=== PATIENT | male | born 1960 | race Caucasian/White ===

== ENCOUNTER 2017-11-05 14:00 | Emergency (ER) | payer BC ==
[2017-11-05 14:19] VITALS: BP 120/77
--- NOTE | 2017-11-05 14:46 | UC ---
Truncal Trauma HPI - HPI Summary HPI Summary: Pt presents with right rib pain for 1 week. He tells me that 1 week ago he was golfing and leaned over the side of the golf cart on his right ribs - heard/ felt a pop in this area. Had immediate pain and has been painful ever since. He tried to deal with pain and take tylenol, but is having trouble getting comfortable. He had some tylenol #3 at home from a previous surgery and took 2 this morning with moderate relief. Trouble taking a deep breath due to pain. Denies SOB. - History Of Current Complaint Chief Complaint: UCChestPain Stated Complaint: RIB INJURY Time Seen by Provider: 11/05/17 14:31 Hx Obtained From: Patient Onset/Duration: Sudden Onset Severity Initially: Severe Severity Currently: Severe Pain Intensity: 8 Pain Scale Used: 0-10 Numeric Aggravating Factor(s): Movement, Deep Breathing, Cough Alleviating factor(s): Rest - Allergies/Home Medications Allergies/Adverse Reactions: Allergies Allergy/AdvReac Type Severity Reaction Status Date / Time No Known Allergies Allergy Verified 11/05/17 14:19 Home Medications: Home Medications Acetaminop/Codeine 30 MG TAB* [Tylenol/Codeine 30 MG TAB*] 1 tab PO PRN [History] Propranolol TAB* [Inderal TAB*] 20 mg PO DAILY 11/05/17 [History Confirmed 11/05] raNITIdine HCl [Ranitidine HCl] 150 mg PO DAILY 11/05/17 [History Confirmed 08/24] PMH/Surg Hx/FS Hx/Imm Hx - Additional Past Medical History Additional PMH: Gout Allergies GI/ History: Gastroesophageal Reflux - Surgical History Surgical History: Yes Surgery Procedure, Year, and Place: APPY - Family History Known Family History: Positive: Hypertension - Social History Occupation: Employed Full-time Lives: With Family Alcohol Use: None Substance Use Type: None Smoking Status (MU): Never Smoked Tobacco Review of Systems Constitutional: Negative Skin: Negative Respiratory: Negative Cardiovascular: Negative Gastrointestinal: Negative Neurovascular: Negative Musculoskeletal: Other: - Right rib pain Neurological: Negative All Other Systems Reviewed And Are Negative: Yes Physical Exam - Summary Physical Exam Summary: GENERAL: Mild pain distress SKIN: No rashes, sores, erythema, or ecchymosis to the right ribs. NECK: Supple. Nontender. No lymphadenopathy. CHEST: CTAB. No accessory muscle use. Breathing comfortably and in no distress. CV: RRR. Without m/r/g. Pulses intact radial and ulnar. MSK: Severe TTP over right ribs 4-7. B/L UEs Strength 5/5 including welfare officer strength, FROM but with pain in right ribs. NEURO: Alert. Sensations intact hand and all fingers. PSYCH: Age appropriate behavior. Triage Information Reviewed: Yes Vital Signs: Initial Vital Signs Temp 98 F 11/05/17 14:13 Pulse 57 11/05/17 14:13 Resp 15 11/05/17 14:13 BP 120/77 11/05/17 14:13 Pulse Ox 97 11/05/17 14:13 Truncal Trauma Course/Dx - Course Course Of Treatment: XR: IMPRESSION: MINIMALLY DISPLACED FRACTURE OF THE RIGHT EIGHTH RIB WITHOUT APPRECIABLE PNEUMOTHORAX. iSTOP Reference #: [id number]. Advised to practice deep breathing. Will rx for Tramadol and advise supportive care. - Differential Dx/Diagnosis Provider Diagnoses: MINIMALLY DISPLACED FRACTURE OF THE RIGHT EIGHTH RIB Discharge - Sign-Out/Discharge Documenting (check all that apply): Discharge/Admit/Transfer - Discharge Plan Condition: Stable Disposition: HOME Prescriptions: traMADol TAB* [Ultram*] 50 mg PO Q8H PRN #18 tab MDD 3 PRN Reason: Pain Patient Education Materials: Rib Fracture (ED) Referrals: Leigh Browning, [facility] [Primary Care Provider] - Additional Instructions: If you develop a fever, shortness of breath, chest pain, new or worsening symptoms - please call your PCP or go to the ED. - Billing Disposition and Condition Condition: STABLE Disposition: HOME
--- NOTE | 2017-11-05 15:05 | RAD ---
HISTORY: Subacute injury, right-sided pain COMPARISONS: None VIEWS: 7, Frontal view of the chest with frontal and oblique views of the right hemithorax. FINDINGS: There is a minimally displaced fracture of the right eighth rib. There is no appreciable pneumothorax. IMPRESSION: MINIMALLY DISPLACED FRACTURE OF THE RIGHT EIGHTH RIB WITHOUT APPRECIABLE PNEUMOTHORAX.
== END 2017-11-05 15:40 | disposition home or self-care (01) ==
LOC: UCEAST 14:00
DX: S22.31XA Fracture of one rib, right side, initial encounter for closed fracture (principal); X50.1XXA Overexertion from prolonged static or awkward postures, initial encounter; Y93.53 Activity, golf; Y92.39 Other specified sports and athletic area as the place of occurrence of the external cause; K21.9 Gastro-esophageal reflux disease without esophagitis
CPT/HCPCS: 99212; G0463

== ENCOUNTER 2022-03-25 07:50 | Observation (INO) ==
[2022-03-25 08:13] LABS: ABS Eosinophils 0.2 10^3/ul (0-0.6); ABS Monocytes 0.9 10^3/ul (0-0.8); ABS Neutrophils 3.9 10^3/ul (1.5-7.7); Eosinophil % 3.4 %; Hematocrit 38 % (42-52); Hemoglobin 12.8 g/dL (14.0-18.0); Lymphocyte % 16.6 %; Mean Corpuscular HGB Conc 34 g/dL (31-36); Mean Corpuscular Hemoglobin 30 pg (27-31); Mean Corpuscular Volume 90 fL (80-94); Mean Platelet Volume 9.1 fL (7.4-10.4); Platelet Count 184 10^3/uL (150-450); Red Blood Count 4.21 10^6 /uL (4.18-5.48); Red Cell Distribution Width 13 % (10-15)
[2022-03-25 08:24] LABS: INR 0.93 (0.89-1.11)
[2022-03-25 09:00] LABS: Albumin 4.1 g/dL (3.2-5.2); Albumin/Globulin Ratio 1.9 (1-3); Calcium 9.2 mg/dL (8.6-10.3); Globulin 2.2 g/dL (2-4); Potassium 4.1 mmol/L (3.5-5.0); Total Bilirubin 0.7 mg/dL (0.2-1.0); Total Protein 6.3 g/dL (6.4-8.9); eGFR CKD-EPI 96.9 (>60)
[2022-03-25 09:54] LABS: High Sensitivity Troponin 1 Hr 91 pg/mL (<20)
[2022-03-25 10:18] LABS: TSH Ultra Thyroid Stim Horm 2.18 mcIU/mL (0.34-5.60)
[2022-03-25] MEDS ORDERED: Ondansetron 4 mg VIAL 2 MG/ML 2 ml VIAL IV PRN (10:47)
[2022-03-25] MEDS ORDERED: Heparin DRIP 25,000 UNITS BAG 25,000 UNITS/500 ML BAG IV SCH (11:15)
[2022-03-25 11:46] LABS: Activated Partial Thrombo Time 26.3 seconds (26.0-38.0)
[2022-03-25] MEDS ORDERED: Heparin 5000 UNITS/ML 1 mL VIAL IV SCH (12:00)
[2022-03-25] MEDS ORDERED: Perflutren Lipid Microsphere 3 ML VIAL ONE (12:14)
[2022-03-25] MEDS ORDERED: fentaNYL 100 mcg/2 ml 50 MCG/ML VIAL ONE (12:42)
[2022-03-25] MEDS ORDERED: Midazolam 5 mg/5 ml VIAL 1 mg/ml 5 ml VIAL (5 mg) ONE (12:42)
[2022-03-25] MEDS ORDERED: VERAPAMIL 2.5 MG/ML 2 ML VIAL ** 5 mg/2 ml ONE ×2 (12:42→13:10)
[2022-03-25] MEDS ORDERED: Heparin 1,000 UNIT/ML 10 ml (10,000 UNITS) CATHLAB/DIALYSIS ONE ×2 (12:43→13:31)
[2022-03-25] MEDS ORDERED: nitroGLYCERIN DRIP 25,000 MCG/250 ML BTL ONE (12:43)
[2022-03-25] MEDS ORDERED: Lidocaine 1% MPF 5 ML VIAL ONE (12:43)
[2022-03-25] MEDS ORDERED: Iohexol 350 (CONTRAST) 100 ML PAK IV ONE (12:43)
[2022-03-25] MEDS ORDERED: Heparin 2 UNITS/ML 1000 mls 2,000 ML IV ONE (12:43)
[2022-03-25] MEDS ORDERED: niCARdipine 0.1MG/ML IVPREMIX 20 MG/200 ML BAG IV ONE (13:45)
[2022-03-25] MEDS: NS 0.9% 1000 ml BAG 1,000 ML IV SCH ×2 (14:34→17:27)
[2022-03-25] MEDS ORDERED: Nitroglycerin 0.6 mg TAB SL PRN (18:21)
[2022-03-26 05:37] LABS: ABS Eosinophils 0.2 10^3/ul (0-0.6); ABS Lymphocytes 1.2 10^3/ul (1.0-4.8); ABS Monocytes 0.9 10^3/ul (0-0.8); ABS Neutrophils 3.4 10^3/ul (1.5-7.7); Eosinophil % 3.8 %; Hematocrit 37 % (42-52); Hemoglobin 12.3 g/dL (14.0-18.0); Lymphocyte % 20.3 %; Mean Corpuscular HGB Conc 33 g/dL (31-36); Mean Corpuscular Hemoglobin 30 pg (27-31); Mean Corpuscular Volume 91 fL (80-94); Mean Platelet Volume 9.1 fL (7.4-10.4); Nucleated Red Blood Cells % 0.1; Platelet Count 153 10^3/uL (150-450); Red Blood Count 4.06 10^6 /uL (4.18-5.48); Red Cell Distribution Width 13 % (10-15); White Blood Count 5.7 10^3/uL (3.5-10.8)
[2022-03-26 06:01] LABS: Calcium 8.6 mg/dL (8.6-10.3); Potassium 4.1 mmol/L (3.5-5.0); eGFR CKD-EPI 97.2 (>60)
[2022-03-26 08:22] VITALS: BP 126/64
[2022-03-26] MEDS: NS 0.9% 1000 ml BAG 1,000 ML IV SCH (10:05)
== END 2022-03-26 12:20 | disposition home or self-care (01) ==
LOC: ED 07:50 → EDHOLD 07:50 → SUATTDRO 10:47 → EDHOLD 11:20 → MEDTELE 17:07
PROVIDERS: ADMIT Internal Medicine; ATTEND Internal Medicine